=== PATIENT | female | born 1945 | race Caucasian/White ===

== ENCOUNTER → 2017-04-29 | Outpatient (CLI) | payer MEDICARE ==
[~2017-04-29] MED LIST: GADOBENATE DIMEGLUMINE 20 ML IV ONE
== END | disposition home or self-care (01) ==
LOC: RAH 10:38
PROVIDERS: ATTEND Psychiatry & Neurology Neurology
DX: G20 Parkinson's disease (principal); G31.9 Degenerative disease of nervous system, unspecified
CPT/HCPCS: 70553; A9577

== ENCOUNTER 2017-12-18 08:29 | Emergency (ER) | payer MEDICARE ==
[2017-12-18] MEDS ORDERED: ACETAMINOPHEN EXTRA STRENGTH 500 MG TABLET ONE (09:02)
== END 2017-12-18 09:48 | disposition home or self-care (01) ==
LOC: EDH 08:29
DX: M79.672 Pain in left foot (principal); G20 Parkinson's disease
CPT/HCPCS: 73630

== ENCOUNTER → 2018-04-30 | Outpatient (CLI) | payer OTHER | END | disposition home or self-care (01) | LOC: OIH 13:48 | PROVIDERS: ATTEND Internal Medicine Nephrology | DX: Z13.6 Encounter for screening for cardiovascular disorders (principal) | CPT/HCPCS: 75571 ==